=== PATIENT | female | born 1985 | race Caucasian/White ===

== ENCOUNTER 2017-03-04 12:36 | Emergency (ER) | payer OTHER ==
[~2017-03-04] VITALS: Wt 133.9 kg
[2017-03-04] MEDS ORDERED: ONDANSETRON (ODT) 4 MG TAB ODT STA (13:14)
--- NOTE | 2017-03-04 13:29 | RADRPT ---
PROCEDURE: XR Chest. CLINICAL INDICATION: Cough. TECHNIQUE: Single frontal view. COMPARISON: None. FINDINGS: The lungs are clear. The heart size is normal. There is no pleural effusion. There is no pneumothorax. IMPRESSION: 1. Normal chest radiograph. RPTAT: QQ .Steven Coreas MD, Date Time Electronically viewed and signed by .Steven Coreas MD, on 03/04/2017 13:29 .R/
[2017-03-04] MEDS ORDERED: ACETAMINOPHEN 325 MG TAB PO ONE (13:30)
[2017-03-04] MEDS ORDERED: IBUPROFEN 600 MG TAB PO ONE (13:30)
[2017-03-04] MEDS ORDERED: AZIT250T94 PO (14:35)
[2017-03-04] MEDS ORDERED: GUAI-637 PO (14:35)
[2017-03-04] MEDS ORDERED: TYL500 PO (14:36)
[2017-03-04] MEDS ORDERED: ONDA-43 PO (14:36)
--- NOTE | 2017-03-04 14:59 | ERD ---
ER Documentation Chief Complaint Chief Complaint cough/fever/malaise/bodyache x4days no medication taken at home. HPI Is a 31-year-old female presents to the ER with fever, cough, body aches, headache for the last 4 days. Patient was sent here from her primary care doctor to rule out influenza versus upper respiratory infection. Denies any chest pain shortness of breath. Headache is throbbing in quality. It is worse whenever she has a fever. Cough is dry and constant. Patient does not have any vomiting or diarrhea she does have some nausea. Patient is able to drink fluids by mouth. She denies any IV drug use ROS All systems reviewed and are negative except as per history of present illness. Medications Home Meds Active Scripts Ondansetron Hcl* (Zofran*) 4 Mg Tab, 4 MG PO Q4H Y for NAUSEA AND OR VOMITING for 3 Days, TAB Prov:INDU STEVEN 03/04/17 Acetaminophen* (Tylenol*) 500 Mg Tab, 1000 MG PO Q8H Y for PAIN AND OR ELEVATED TEMP for 3 Days, TAB Prov:INDU STEVEN 03/04/17 Guaifenesin* (Robitussin*) 100 Mg/5 Ml Syrup, 200 MG PO Q6H Y for COUGH for 3 Days, ML Prov:INDU STEVEN 03/04/17 Azithromycin* (Zithromax*) 250 Mg Tablet, 250 MG PO .ZPACK DIRECTED, #6 TAB TAKE 500 MG (2 TABS) THE FIRST DAY THEN 250 MG (1 TAB) DAYS 2-5 Prov:INDU STEVEN 03/04/17 Allergies Allergies: Coded Allergies: No Known Allergy (Unverified , 03/04/17) PMhx/Soc Medical and Surgical Hx: pt denies Medical Hx, pt denies Surgical Hx Hx Substance Use: No Hx Tobacco Use: No Smoking Status: Never smoker Physical Exam Vitals Vital Signs Date Time Temp Pulse Resp B/P Pulse Ox O2 Delivery O2 Flow Rate FiO2 03/04/17 12:43 102.4 119 22 130/87 98 Physical Exam C GENERAL: The patient is well-developed, well-nourished, in no acute distress. NECK: Cervical spine is non tender with no step off. Supple, no nuchal rigidity. negative Kernig negative Brudzinski HEENT: Atraumatic. Pupils equal, round and reactive to light. Extraocular muscles are grossly intact. Conjunctivae pink, no discharge. Bilateral tympanic membranes are clear with no evidence of erythema, effusion or dulling of the light reflex. Tonsilar erythema with no exudates or uvular deviation. Clear rhinorrhea. RESPIRATORY: Clear to auscultation bilaterally. There are no rales, wheezes or rhonchi. HEART: Regular rate and rhythm. No murmurs, clicks, rubs or gallops. EXTREMITIES: No clubbing or cyanosis. Full range of motion. Grossly neurovascularly intact. NEUROLOGIC: Alert and oriented. Cranial nerves II through XII are intact. SKIN: There is no rash. The skin is warm and dry. Results 24 hrs Current Medications Medications (Trade) Dose Ordered Sig/Yang Route PRN Reason Start Time Stop Time Status Last Admin Dose Admin Ibuprofen (Motrin) 600 mg ONCE ONCE PO 03/04/17 13:30 03/04/17 13:31 DC 03/04/17 13:36 Acetaminophen (Tylenol Tab) 650 mg ONCE ONCE PO 03/04/17 13:30 03/04/17 13:31 DC 03/04/17 13:36 Ondansetron HCl (Zofran Odt) 4 mg ONCE STAT ODT 03/04/17 13:14 03/04/17 13:16 DC 03/04/17 13:37 Procedures/MDM Differential diagnosis includes but is not limited to; Viral URI, allergic rhinitis, bronchitis, pertussis,pneumonia. She will be treated for possible bacterial bronchitis, secondary to the severity of her symptoms. Clinical suspicion for pneumonia is low as patient appears well, is not hypoxic or in any respiratory distress. Additionally, patients physical examination is benign. [place] primary care doctor was requesting possible blood work and IV fluids, however I do not believe that this is necessary as patient does have upper respiratory infection symptoms likely the cause of her fever. I do not believe that IV fluids are necessary as patient has not had any nausea vomiting or diarrhea and she is also able to tolerate p.o. fluids. She will be sent home with azithromycin, zofran, ibuprofen, tylenol. plan was discussed with patient they understand and agree. Patient needs to follow up with PCP in 1-2 days or return to ER sooner if symptoms worsen. Departure Diagnosis: Primary Impression: Bronchitis Condition: Stable Patient Instructions: Acute Bronchitis Additional Instructions: Call your primary care doctor TOMORROW for an appointment during the next 1-2 days.See the doctor sooner or return here if your condition worsens before your appointment time. INDU STEVEN Mar 04, 2017 14:59
[2017-03-04 15:21] VITALS: TEMP 98.5
== END 2017-03-04 15:40 | disposition home or self-care (01) ==
LOC: FTE 12:36
DX: J20.9 Acute bronchitis, unspecified (principal)
CPT/HCPCS: 36415; 71010; 87400; 87880; Z7502; Z7610